=== PATIENT | female | born 1990 | race Caucasian/White ===

== ENCOUNTER → 2017-08-11 20:31 | Outpatient (CLI) | payer OTHER, SELFPAY ==
[2017-08-16 13:59] LABS: HPV Reflexed? NOT INDICATED
== END ==
PROVIDERS: Visit Provider Obstetrics & Gynecology
DX: Z12.4 Encounter for screening for malignant neoplasm of cervix (principal)
CPT/HCPCS: 88175; G0145

== ENCOUNTER → 2018-08-04 14:34 | Outpatient (CLI) | payer OTHER, SELFPAY ==
[2018-08-04 17:55] LABS: Chlamydia Trachomatis by PCR Negative (Negative); Neisserai gonorrhoeae by PCR Negative (Negative); Probe Check PASS; Sample Adequacy Control PASS; Specimen Processing Control PASS
== END ==
PROVIDERS: Visit Provider Obstetrics & Gynecology
DX: Z11.3 Encounter for screening for infections with a predominantly sexual mode of transmission (principal)
CPT/HCPCS: 87491; 87591

== ENCOUNTER → 2019-04-12 11:16 | Outpatient (CLI) | payer OTHER, SELFPAY ==
--- NOTE | 2019-04-12 11:19 | RAD_ITS ---
STUDY: X-RAY - LEFT KNEE REASON FOR EXAM: Female, 29 years old. Pain. TECHNIQUE: 4 view(s) of the knee. COMPARISON: None. FINDINGS: Normal visualized distal femur. Normal visualized proximal tibia and fibula. Normal proximal tibiofibular articulation. Normal medial femorotibial compartment. Normal lateral femorotibial compartment. Normal patellofemoral articulation. The soft tissue structures are unremarkable. RAD/Knee 4 or More Views IMPRESSION: Normal x-ray examination of the knee. Electronically Signed: David Katz, at 15:47 EDT , Service support ,
== END ==
PROVIDERS: Family Provider Internal Medicine; PCP Internal Medicine; Referring Provider Internal Medicine; Visit Provider Internal Medicine
DX: M25.562 Pain in left knee (principal)
CPT/HCPCS: 73564

== ENCOUNTER → 2019-12-06 | Outpatient (CLI) | payer OTHER, SELFPAY ==
[2019-12-12 15:57] LABS: HPV Reflexed? NOT INDICATED
== END | disposition home or self-care (01) ==
LOC: LABSPEC 13:55
PROVIDERS: PCP Internal Medicine; Visit Provider Obstetrics & Gynecology
DX: Z12.4 Encounter for screening for malignant neoplasm of cervix (principal)
CPT/HCPCS: 88175; G0145

== ENCOUNTER 2020-06-18 09:24 | Day surgery (SDC) | payer OTHER, SELFPAY ==
[2020-06-05 09:25] VITALS: BMI 26.6
[2020-06-18] VITALS (7 sets, daily range): BP systolic 84–115; BP diastolic 43–64; PULSE 53–99; RESP 16–18; TEMP 36.2–36.9; O2SAT 93–100; BMI 28.5
--- NOTE | 2020-06-18 06:00 | HP_ITS ---
Intake Vital Signs 06/05/20 Height 5 ft 1 in 06/05/20 Weight: 141 lb 06/05/20 BMI 26.6 06/05/20 BP 117/77 06/05/20 Blood Pressure Location Rt brachial 06/05/20 Position Sitting 06/05/20 Respiration 16 Intake Visit Reasons: Ventral Hernia Chief Complaint: ventral hernia Behavioral Health Care Manager Required: No Is patient in pain?: No Allergies Penicillins Allergy (Mild, Verified 06/05/20 09:26) Rash shellfish derived Allergy (Mild, Verified 06/05/20 09:26) Itching Medications NK 06/05/20 [History Confirmed 06/05/20] PFSH Surgical History S/P section (Acute) s/p left elbow surgery (Acute) s/p right elbow surgery (Acute) Family History Mother Thyroid disorder Hypertension Social History (Updated 06/05/20 @ 09:[address] Bailee Morrissey MD) Smoking Status: Current every day smoker alcohol intake: current HPI HPI HPI: ARIELLE SIDDIQUI, is a 30 F who presents to the office today for HPI HPI Surgical H&P: Yes HPI: ARIELLE SIDDIQUI, is a 30 F who presents to the office today for Possible ventral hernia. Patient states she is noticed a bump for the past few years . Patient states that time she may be a little bit bigger than usual and does not necessarily notice this when doing abdominal crunch. Patient seems notes it more when she is laying on her stomach doing exercises it can be uncomfortable patient rates it at 3/10. Currently patient denies any pain or discomfort at the site. Patient did lose 40 pounds intentionally in the last couple years. Exam Const General: cooperative, comfortable, no acute distress, well developed Resp Effort & Inspection: normal respiratory effort Cardio Rate: regular rate GI Inspection: non-distended Palpation: soft, no guarding, tender (Minimally in the midline above the bellybutton about 2 to 3 cm) Other: Unable to discretely feel the hernia with physical exam, bedside ultrasound was used and did notice a small little defect in the fascia about 3 cm above the umbilicus which measured about 3 mm on ultrasound.There did appear to be some preperitoneal fat in the hernia, no signs of strangulation Assessment & Plan Problems 1. Ventral hernia without obstruction or gangrene K43.9 Plan Discussed with patient due to the small size of the hernia would recommend just a suture closure and would likely not place any mesh. Plan to do Ventral hernia repair with possible mesh. Reviewed the procedure with the patient including the risks, including but not limited to infection, bleeding, injury to the small bowel, and recurrence. All questions were answered. Also, discussed risk of strangulated bowel, which currently is quite low as she has a very small defect but already has preperitoneal fat in it. Bailee Morrissey M.D. Pager: [phone] [facility] [address] [place] [address], [address] [place] [address] Office: [phone] Plan Detail Follow Up We will schedule hernia repair Coding Level of Care Code Off vis,new,level 3 Diagnoses Ventral hernia without obstruction or gangrene K43.9 COVID (Procedure Consent) Procedure Criteria Procedure Criteria: Yes Elective The surgeon/proceduralist and patient have discussed in detail the risk of exposure to and/or potential harm posed by the COVID-19 virus with having a surgery/procedure at this time versus the risk of? delaying the surgery/procedure. It is not possible to know either the risk of delaying the surgery or procedure or chance of getting an infection with perfect accuracy, but a joint decision was made between the patient and the surgeon/proceduralist ?to proceed at this time with the scheduled surgery/procedure as indicated on the consent form. I have re-examined the patient. There are no clinical changes since date of exam.
[2020-06-18 10:07] LABS: Internal QC Validated? YES +Cl - CLEAR BKGD; Pregnancy, Urine Negative Negative
--- NOTE | 2020-06-18 12:45 | OP.PCM_ITS ---
Report of Operation Date of Procedure: 06/18/20 Pre-Operative Diagnosis: Ventral hernia Post-Operative Diagnosis: Same Surgery/Procedure Performed:: Ventral hernia repair seal delivery vehicle team technician: Evelia Varghese Type of Anesthesia:: General/Supplemental Anesthesiologist: Yanick Robins Special Medications: Clindamycin 900 mg IV x1 Specimen's removed: None Estimated Blood Loss (mL): <10 cc Fluids Replaced: 1400 Description of Procedure: Patient was brought into the room placed supine on the operating table. Correct patient, procedure, site, positioning, special, was verified prior to procedure. General anesthesia was induced. The abdomen was prepped draped in usual st erile fashion. A supraumbilical midline incision was made with a 15 blade scalpel at the location of the hernia per bedside ultrasound. This was deepened with electrocautery. The fascia was cleared in this area to locate the hernia. Fascia around the hernia defect was cleared and the hernia defect measured 3 mm x 3 mm. 2-0 Ethibond suture was placed to close the fascia in a [id number]. No other fascial defects were noted in this area. The wound was irrigated with saline. Hemostasis was assured. The incision was closed with 3-0 Vicryl subdermal interrupted sutures and the skin was closed with interrupted 4-0 Monocryl sutures. Steri-Strips and Tegaderm and OpSite were placed over the incision. Patient was extubated. Patient tolerated procedure well and was taken to the postanesthesia care unit in stable condition. - Complications none
[2020-06-18] MEDS: Bupivacaine Mpf 0.5% 30 ML VIAL (12:47)
--- NOTE | 2020-06-18 12:48 | PCM.DC.GS ---
Discharge Diet: Light diet - advance as tolerated Discharge Activity: May not drive while taking narcotic pain medications. May shower in (days): 1 Lifting Restrictions: No lifting greater than 20 pounds x 2 weeks no strenuous exercise for 4 wks Call your doctor if your incision/area has: Continuous Slow Oozing, Sudden Increased Bleeding, Increased Pain/ Swelling, Increased Redness, Foul Smelling Discharge, Swelling at the incision site Call your doctor if you observe: Fever of 101 or Higher Additional Dressing/Incision Instructions:: Keep pressure dressing on for 2 days and okay to remove, replaced with a pressure type dressing for another 2 to 3 days change daily. Allergies/Adverse Reactions: Allergies Penicillins Allergy (Mild, Verified 06/18/20 09:59) Rash shellfish derived Allergy (Mild, Verified 06/18/20 09:59) Itching Medications to take at Discharge Oxycodone HCl/Acetaminophen [Percocet 5/325] 1 - 2 tablet PO Q6H PRN PRN 4 Days #15 tablet 06/18/20 The following prescriptions were given: Oxycodone HCl/Acetaminophen [Percocet 5/325] 1 - 2 tablet PO Q6H PRN PRN 4 Days #15 tablet PRN Reason: Pain Transmission Status: Sent to [facility] Primary Care Physician: Anitra Mcbride DO [Primary Care Provider] - Test Results: Test results from this visit will be discussed in further detail at your follow-up appointment, if applicable. Please Follow Up With: Bailee Morrissey MD - After 5 PM and on the weekends call [phone] with any concerns When: Call the office for a follow-up appointment in 2 weeks. Proposed Discharge Date: 06/18/20
== END 2020-06-18 14:40 | disposition home or self-care (01) ==
LOC: SDC 09:24 → AC 09:26
PROVIDERS: Anesthesiology; PCP Internal Medicine; Referring Provider Surgery; Visit Provider Surgery
PROC: (CPT 49560; principal; 2020-06-18 10:40)
DX: K43.9 Ventral hernia without obstruction or gangrene (principal); Z20.828 Contact with and (suspected) exposure to other viral communicable diseases; F17.200 Nicotine dependence, unspecified, uncomplicated; Z88.0 Allergy status to penicillin
CPT/HCPCS: 49560; 81025; 87426; C9803; J7120; J2405

== ENCOUNTER 2020-09-25 08:00 | Outpatient (RCR) | payer OTHER, SELFPAY | END 2020-11-26 23:59 | LOC: IMMUN 08:00 | PROVIDERS: PCP Internal Medicine; Visit Provider Family Medicine | DX: Z23 Encounter for immunization (principal) | CPT/HCPCS: 0002A; 91300 ==

== ENCOUNTER → 2022-02-20 | Outpatient (CLI) | payer OTHER, SELFPAY ==
--- NOTE | 2022-02-20 16:58 | MRI_ITS ---
STUDY: MR Knee W/O Contrast 02/20/2022 7:53 PM REASON FOR EXAM: Female, 31 years old.Technologist Notes ELFT knee pain s/p patellar dislocation, painful ROM Pain TECHNIQUE: Standardized fat and water weighted pulse sequences were obtained in all 3 orthogonal planes. COMPARISON: None. FINDINGS: Normal medial meniscus. Normal hyaline cartilage of the medial femorotibial compartment. Normal medial femoral condyle and tibial plateau. Normal medial collateral ligamentous complex (MCL). Normal distal semimembranosus, gracilis and semitendinosus tendons. Normal lateral meniscus. Normal hyaline cartilage of the lateral femorotibial compartment. Normal lateral tibial plateau. Normal proximal tibiofibular articulation. Normal lateral collateral (fibular) ligament. Normal popliteus tendon. Normal biceps femoris tendon. Normal anterior cruciate ligament (ACL). Normal posterior cruciate ligament (PCL). Normal congruent patellofemoral articulation. Normal hyaline cartilage of the patellofemoral compartment. Normal medial and lateral patellar retinaculum. Bone bruise of the patella. Bony edema and bruise of the lateral femoral condyle. Normal quadriceps tendon. Normal patellar tendon. Normal Hoffa''s fat pad. There is a small volume joint effusion. The soft tissues are unremarkable. The otherwise visualized osseous structures are unremarkable. MRI/Lower Ext Joint Only (Routine) IMPRESSION: Bone bruise of the patella. Bony edema and bruise of the lateral femoral condyle. Suprapatellar effusion. Electronically Signed: Dean Dorsey MD at 19:56 EDT ,
== END | disposition home or self-care (01) ==
PROVIDERS: PCP Internal Medicine
DX: S83.015A Lateral dislocation of left patella, initial encounter (principal)
CPT/HCPCS: 73721

== ENCOUNTER → 2023-09-02 | Outpatient (CLI) | payer OTHER, SELFPAY ==
[2023-09-06 21:07] LABS: Chlamydia By Nucleic Acid AMP Negative (Negative); Gonococcus By Nucleic Acid AMP Negative (Negative)
[2023-09-08 13:08] LABS: HPV APTIMA, High Risk Negative (Negative)
== END | disposition home or self-care (01) ==
LOC: LABSPEC 15:26
PROVIDERS: PCP Internal Medicine; Referring Provider Advanced Practice Midwife; Visit Provider Advanced Practice Midwife
DX: Z34.90 Encounter for supervision of normal pregnancy, unspecified, unspecified trimester (principal); Z3A.00 Weeks of gestation of pregnancy not specified
CPT/HCPCS: 87086; 87491; 87591; 87624; 88175; G0145

== ENCOUNTER 2023-09-25 19:43 | Emergency (ER) | payer OTHER, SELFPAY ==
[2023-09-25 19:44] VITALS: BP 125/73; PULSE 81; RESP 18; TEMP 36.6; O2SAT 99; BMI 32.1
--- NOTE | 2023-09-25 20:01 | US_ITS ---
STUDY: FIRST TRIMESTER OBSTETRICAL ULTRASOUND REASON FOR EXAM: Female, 33 years old. bleeding TECHNIQUE: Transvaginal US was obtained to better visualized the ovaries. TECHNICAL QUALITY: Adequate. PRIOR ULTRASOUND: None. FINDINGS: There is visualization of a single gestational sac in a normal intrauterine position. The mean sac diameter (MSD) measures 63 mm, indicating an estimated gestational age (EGA) of 12 weeks, 4 days. The gestational sac shape is within normal limits. There is no demonstrated yolk sac. There is visualization of the placenta. Posterior placenta. There is visualization of a live embryo. The crown-rump length (CRL) measures 60 mm, indicating an estimated gestational age (EGA) of 12 weeks, 3 days. There is demonstrated cardiac activity with a heart rate of 160 bpm. The estimated gestation age (EGA) by LMP is 12 weeks, 4 days. The estimated date of delivery (ENEDINA) by LMP is 10.15.24. The estimated gestation age (EGA) by US is 12 weeks, 4 days. The estimated date of delivery (ENEDINA) by US is 10.15.24. The uterus measures 12.3 cm. There is no demonstrated uterine fibroid. The cervix is closed. The right ovary measures 2.9 cm. There is no right ovarian cyst. There is no visualized right adnexal mass or complex lesion. The left ovary measures 3.3 cm. There is no left ovarian cyst. There is no visualized left adnexal mass or complex lesion. There is no fluid in the cul de sac. US/Transvaginal w/Preg US IMPRESSION: There is a single live intrauterine with a heart rate of 160 bpm. Electronically Signed: Dean Dorsey MD at 21:23 EDT ,
--- NOTE | 2023-09-25 20:02 | ED.VIS.FEGU ---
HPI <CHRISTINE Thacker - Last Filed: 09/25/23 21:27> HPI - Female History of Present Illness Chief Complaint: Vag Bld, Preg Narrative Narrative: 33-year-old female G2, P1 about 12 weeks states 30 minutes ago she felt wetness in her underwear and there was bright red blood. There is bright red blood when she wiped after urinating. She has no abdominal pain or cramping. She called her RECEPTION CENTRE MANAGER who recommended she come in. So far first trimester has been uncomplicated and she had an ultrasound around 9 weeks confirming intrauterine . She has no dysuria or hematuria. PFSH <CHRISTINE Thacker - Last Filed: 09/25/23 21:27> PFS Medical History Knee pain Use of cannabinoid edibles Home Medications multivit-min no.71-iron fum 28 mg-folate no.1 1 mg-dha 300 mg capsule (PNV-[place]) cap PO 08/27/23 [History Last Taken Unknown] Allergy/AdvReac Type Severity Reaction Status Date / Time Penicillins Allergy Mild Rash Verified 09/25/23 19:47 shellfish derived Allergy Mild Itching Verified 09/25/23 19:47 Family History Mother Thyroid disorder Hypertension Grandmother Diabetes Paternal Grandmother Diabetes maternal Other Cancer Surgical History S/P section s/p left elbow surgery s/p right elbow surgery S/P ventral herniorrhaphy [place] teeth extracted Social History adopted: No household members: spouse and children number of children: 1 current occupational status: employed 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 current occupational exposures/hazards: No pets and animals: Yes (Avoid litterbox) pets and animals: cat(s) and dog(s) history of recent travel: Yes ([place] April) out of state: Yes out of country: No sexually active: Yes Smoking Status: Former smoker quit date: 08/20/11 alcohol intake: current details: Not while well-balanced diet: daily or most days caffeine: Yes Type: coffee Number of servings: 1 eating out: rarely or never during the past year weight has: remained stable what type of physical activity do you participate in: weight training frequency: 5-6 times per week duration: 15-30 minutes/day idris/hoahaoism: None seatbelt use: always do you feel safe at home: Yes additional social history: Naveen COSBY <CHRISTINE Thacker - Last Filed: 09/25/23 21:27> ROS ED ROS Narrative Constitutional: Negative for fever, chills, malaise. GI: Negative for abdominal pain, nausea, vomiting. : Negative for dysuria, hematuria or frequency. EXAM <CHRISTINE Thacker - Last Filed: 09/25/23 21:27> Physical Exam Narrative Exam Narrative: CONST: Patient sitting in no acute distress. EYES: Normal inspection. NECK: Normal inspection. RESP: No respiratory distress, CTAB. CVS: Regular rate and rhythm, no murmur, no gallop. ABD: Soft and nontender, no guarding or rebound, nondistended. Pelvic: Normal external genitalia, dime sized blood clot in vaginal vault. Cervical os appears closed with no active bleeding. SKIN: Color normal, no rash, warm, dry, intact. EXTREMITIES: Normal appearance, no pedal edema. NEURO: Alert and answering questions appropriately. PSYCH: Normal affect. Const Vital Signs: 09/25/23 19:44 Temperature 97.9 F Temperature Source Temporal Pulse Rate 81 Respiratory Rate 18 Blood Pressure 125/73 H Blood Pressure Mean 90 Pulse Ox 99 Oxygen Delivery Method Room Air <Dr. Sav Guallpa DO - Last Filed: 09/25/23 21:04> Physical Exam Const Vital Signs: 09/25/23 19:44 Temperature 97.9 F Temperature Source Temporal Pulse Rate 81 Respiratory Rate 18 Blood Pressure 125/73 H Blood Pressure Mean 90 Pulse Ox 99 Oxygen Delivery Method Room Air MDM <CHRISTINE Thacker - Last Filed: 09/25/23 21:27> MDM MDM Narrative Medical decision making narrative: History gathered from: Patient and spouse Consults: RECEPTION CENTRE MANAGER Differential: Threatened versus complete , UTI Patient is about 12.5 weeks and presents with vaginal bleeding without abdominal pain. She appears well and nontoxic. Vital signs stable. Abdomen soft and nontender. Pelvic exam showed a small dime size clot but no active bleeding and closed cervical os. Hemoglobin is normal at 12.8. hCG quant is 29,637. Urine is contaminated with 2+ bacteria and was sent for culture. Ultrasound shows single live IUP with heart rate of 160 bpm. I discussed these findings with the patient and her RECEPTION CENTRE MANAGER Dr. Jordi Hanson and she will follow-up in the office. She was discharged in stable condition. Patient seen and evaluated with ANU. I personally interviewed and examined the patient. I was involved in all aspects of patient's orders, interpretation of results, and treatment. Patient presents to the emergency department vaginal bleeding started at half an hour ago. Patient states that she just felt wet and went to the bathroom and noted that she was bleeding. She is and 12 weeks and 4 days . Patient had an ultrasound at about 9 weeks that showed an intrauterine at that time. She denies any abdominal pain. Patient denies urinary symptoms. Patient's RECEPTION CENTRE MANAGER called to let me know patient would be coming to the emergency department to be evaluated. HEENT-PERRLA, EOMI Cardiovascular-regular rate and rhythm without murmur Lungs-clear to auscultation without rales or wheezes Abdomen-nontender with normal active bowel sounds. No rebound, rigidity, or peroneal signs. Extremities-intact x 4 without edema Patient presents with vaginal bleeding and about 12 weeks 4 days . Will obtain basic labs and order pelvic ultrasound to evaluate further. CBC with differential white count 9.7 hemoglobin 12.8 platelet count 208. Urinalysis unremarkable. Discussed case with patient's RECEPTION CENTRE MANAGER Dr. Eden who sent the patient in. Will await official report from radiology but feel patient can be safely discharged to home. Lab Data Attestation: I reviewed the patient's lab results. Labs: Laboratory Results - last 24 hr 09/25/23 20:05 WBC 9.7 RBC 4.13 L Hgb 12.8 Hct 36.2 L MCV 87.7 MCH 31.0 MCHC 35.4 RDW Std Deviation 37.3 RDW Coeff of Radha 11.7 Plt Count 208 MPV 10.4 Immature Gran % (Auto) 0.600 Neut % (Auto) 72.2 H Lymph % (Auto) 20.0 [place] % (Auto) 5.7 Eos % (Auto) 1.2 Baso % (Auto) 0.3 Absolute Neuts (auto) 7.0 Absolute Lymphs (auto) 1.95 Nucleated RBC % 0 HCG, Quant 25493 H Urine Color Yellow Urine Clarity Sl. Cloudy Urine pH 7.0 Ur Specific [place] 1.020 Urine Protein 15 H Urine Glucose (UA) Normal Urine Ketones Negative Urine Occult Blood 250 H Urine Nitrite Negative Urine Bilirubin Negative Urine Urobilinogen 1 H Ur Leukocyte Esterase 100 H Urine RBC 10-25 SEEN Urine WBC 0-5 SEEN Ur Squamous Epith Cells 10-25 SEEN Urine Bacteria 2+ Urine Mucus 0 SEEN Radiography Diagnostic Testing: Clinical Impression(s) from Imaging Studies Obstetrics Ultrasound 09/25/23 20:01 IMPRESSION: There is a single live intrauterine with a heart rate of 160 bpm. Electronically Signed: Dean Dorsey MD at 21:23 EDT Reading Location ID and State: [facility] / [place] , Service support , <Dr. Sav Guallpa, DO - Last Filed: 09/25/23 21:04> [facility] Narrative Medical decision making narrative: Patient is about 12.5 weeks and presents with vaginal bleeding without abdominal pain. She appears well and nontoxic. Vital signs stable. Abdomen soft and nontender. Pelvic exam showed a small dime size clot but no active bleeding and closed cervical os. Hemoglobin is normal at 12.8. hCG quant is 29,637. Patient seen and evaluated with ANU. I personally interviewed and examined the patient. I was involved in all aspects of patient's orders, interpretation of results, and treatment. Patient presents to the emergency department vaginal bleeding started at half an hour ago. Patient states that she just felt wet and went to the bathroom and noted that she was bleeding. She is and 12 weeks and 4 days . Patient had an ultrasound at about 9 weeks that showed an intrauterine at that time. She denies any abdominal pain. Patient denies urinary symptoms. Patient's RECEPTION CENTRE MANAGER called to let me know patient would be coming to the emergency department to be evaluated. HEENT-PERRLA, EOMI Cardiovascular-regular rate and rhythm without murmur Lungs-clear to auscultation without rales or wheezes Abdomen-nontender with normal active bowel sounds. No rebound, rigidity, or peroneal signs. Extremities-intact x 4 without edema Patient presents with vaginal bleeding and about 12 weeks 4 days . Will obtain basic labs and order pelvic ultrasound to evaluate further. CBC with differential white count 9.7 hemoglobin 12.8 platelet count 208. Urinalysis unremarkable. Discussed case with patient's RECEPTION CENTRE MANAGER Dr. Eden who sent the patient in. Will await official report from radiology but feel patient can be safely discharged to home. Lab Data Attestation: I reviewed the patient's lab results. Labs: Laboratory Results - last 24 hr 09/25/23 20:05 WBC 9.7 RBC 4.13 L Hgb 12.8 Hct 36.2 L MCV 87.7 MCH 31.0 MCHC 35.4 RDW Std Deviation 37.3 RDW Coeff of Radha 11.7 Plt Count 208 MPV 10.4 Immature Gran % (Auto) 0.600 Neut % (Auto) 72.2 H Lymph % (Auto) 20.0 [place] % (Auto) 5.7 Eos % (Auto) 1.2 Baso % (Auto) 0.3 Absolute Neuts (auto) 7.0 Absolute Lymphs (auto) 1.95 Nucleated RBC % 0 HCG, Quant 18354 H Urine Color Yellow Urine Clarity Sl. Cloudy Urine pH 7.0 Ur Specific [place] 1.020 Urine Protein 15 H Urine Glucose (UA) Normal Urine Ketones Negative Urine Occult Blood 250 H Urine Nitrite Negative Urine Bilirubin Negative Urine Urobilinogen 1 H Ur Leukocyte Esterase 100 H Urine RBC 10-25 SEEN Urine WBC 0-5 SEEN Ur Squamous Epith Cells 10-25 SEEN Urine Bacteria 2+ Urine Mucus 0 SEEN Radiography Diagnostic Testing: Clinical Impression(s) from Imaging Studies Obstetrics Ultrasound 09/25/23 20:01 IMPRESSION: There is a single live intrauterine with a heart rate of 160 bpm. Electronically Signed: Dean Dorsey MD at 21:23 EDT Reading Location ID and State: [facility] / [place] , Service support , Discharge Plan Triage Chief Complaint: Vag Bld, Preg ED Midlevel Provider: Luna Cardoza ED Provider: Sav Guallpa Dx/Rx/DC Orders Clinical Impression: Threatened in first trimester Instructions: Miscarriage Threatened Prescriptions: No Action PNV-[place] 28-1-300 mg capsule PO Primary Care Provider: Anitra Mcbride Referrals: Anitra Mcbride DO [Primary Care Provider] - Dorita Eden MD [Med Staff - Active Staff] - Keep Nieves appointment Activity Restrictions/Additional Instructions: Your ultrasound showed a normal-appearing with a heart rate of 160. Whenever you have bleeding during this is called a threatened miscarriage. I recommend pelvic rest which means no tampons or sex or anything inserted into the vagina. Please follow-up with your RECEPTION CENTRE MANAGER. Disposition Disposition: Home, Self Care
[2023-09-25 20:15] LABS: Mucous, Urine 0 SEEN /hpf (<or=2+)
[2023-09-25 20:16] LABS: Absolute Lymphocyte Count 1.95 X10^3/uL (0.83-4.51); Basophil# 0.03 X10^3/uL; Basophil% 0.3 % (0-1); Eosinophil# 0.12 X10^3/uL; Eosinophils% 1.2 % (0-5); Hematocrit 36.2 % (37-47); Hemoglobin 12.8 g/dL (12.0-15.0); Lymphocyte # 1.95 X10^3/ul (0.83-4.51); Mean Corp Hgb Conc 35.4 g/dL (32-36); Mean Corpuscular Volume 87.7 fL (81-99); Mean Platelet Vol. 10.4 fl (6.2-12.0); Monocyte# 0.55 X10^3/uL; Monocyte% 5.7 % (0-10); NRBC Flagged by Analyzer 0 % (0-5); Neutrophil # 7.02 X10^3/uL (2.7-7.7); Neutrophil % 72.2 % (47-70); Platelet Count 208 K/mm3 (150-450); RBC Distribution Width CV 11.7 % (11.6-14.6); RBC Distribution Width SD 37.3 fl (35.1-43.9); Red Blood Count 4.13 M/mm3 (4.2-5.4); White Blood Count 9.7 K/mm3 (4.4-11.0)
[2023-09-25 20:17] LABS: Color, Urine Yellow (Yellow); Glucose, Dipstick Normal (Normal); Ketone-Dipstick Negative (Negative); Leukocyte Esterase-Dipstick 100 /ul (Negative); Nitrite-Dipstick Negative (Negative); Occult Blood-Urine 250 /ul (Negative); Protein-Dipstick 15 mg/dl (Negative); Urine Bilirubin Dipstick Negative (Negative); Urine Clarity Sl. Cloudy (Clear); Urine Urobilinogen 1 mg/dl (Normal)
[2023-09-25 20:23] LABS: Red Blood Cells-Urine 10-25 SEEN /hpf (0-5); Squamous Epithelial Cells - UA 10-25 SEEN /hpf (5-10); White Blood Cells 0-5 SEEN /hpf (0-5)
[2023-09-25 20:24] LABS: Bacteria 2+ /hpf (None Seen)
[2023-09-25 20:50] LABS: hCG Titer Quant., Serum 29637 mIU/mL (1-3)
[2023-09-25 21:30] VITALS: BP 132/69; PULSE 68; RESP 16; TEMP 36.4; O2SAT 100
== END 2023-09-25 21:31 | disposition home or self-care (01) ==
PROVIDERS: Physician Assistant; Emergency Provider Emergency Medicine; PCP Internal Medicine; Visit Provider Emergency Medicine
DX: O20.0 Threatened abortion (principal); Z3A.12 12 weeks gestation of pregnancy; Z87.891 Personal history of nicotine dependence
CPT/HCPCS: 76817; 81001; 84702; 85025; 87086; 99283

== ENCOUNTER → 2023-10-04 | Outpatient (CLI) | payer OTHER, SELFPAY ==
[2023-10-04 12:54] LABS: Absolute Lymphocyte Count 1.31 X10^3/uL (0.83-4.51); Absolute Neutrophil Count 5.3 X10^3/uL (2.0-7.7); Basophil# 0.02 X10^3/uL; Basophil% 0.3 % (0-1); Eosinophil# 0.08 X10^3/uL; Eosinophils% 1.1 % (0-5); Hematocrit 35.7 % (37-47); Hemoglobin 12.6 g/dL (12.0-15.0); Lymphocyte # 1.31 X10^3/ul (0.83-4.51); Lymphocyte % 18.7 % (19-41); Mean Corp Hgb Conc 35.3 g/dL (32-36); Mean Corpuscular Hgb 31.3 pg (27.0-32.0); Mean Corpuscular Volume 88.8 fL (81-99); Mean Platelet Vol. 10.8 fl (6.2-12.0); Monocyte% 4.3 % (0-10); NRBC Flagged by Analyzer 0 % (0-5); Neutrophil # 5.25 X10^3/uL (2.7-7.7); Neutrophil % 75.2 % (47-70); Platelet Count 195 K/mm3 (150-450); RBC Distribution Width CV 11.7 % (11.6-14.6); RBC Distribution Width SD 37.6 fl (35.1-43.9); Red Blood Count 4.02 M/mm3 (4.2-5.4)
[2023-10-04 13:45] LABS: Hemoglobin A1c 4.5 % (3.8-5.6)
[2023-10-04 14:04] LABS: HIV - WCH Non-Reactive (Nonreactive); Hepatitis B Surface Antigen Non-Reactive (Nonreactive); Hepatitis C Antibody Non-Reactive (Nonreactive); Rubella IgG Reactive (Nonreactive); Syphilis Antibodies Non-reactive
== END | disposition home or self-care (01) ==
LOC: LAB 12:09
PROVIDERS: PCP Internal Medicine; Visit Provider Advanced Practice Midwife
DX: Z34.01 Encounter for supervision of normal first pregnancy, first trimester (principal)
CPT/HCPCS: 83036; 85025; 86703; 86762; 86780; 86803; 86850; 86900; 86901; 87340

== ENCOUNTER → 2024-01-03 | Outpatient (CLI) | payer OTHER, SELFPAY ==
[2024-01-03 12:56] LABS: Absolute Lymphocyte Count 1.05 X10^3/uL (0.83-4.51); Absolute Neutrophil Count 6.3 X10^3/uL (2.0-7.7); Basophil# 0.02 X10^3/uL; Basophil% 0.3 % (0-1); Eosinophil# 0.07 X10^3/uL; Eosinophils% 0.9 % (0-5); Hematocrit 33.2 % (37-47); Hemoglobin 11.4 g/dL (12.0-15.0); Lymphocyte # 1.05 X10^3/ul (0.83-4.51); Lymphocyte % 13.6 % (19-41); Mean Corp Hgb Conc 34.3 g/dL (32-36); Mean Corpuscular Hgb 31.8 pg (27.0-32.0); Mean Corpuscular Volume 92.7 fL (81-99); Mean Platelet Vol. 11.1 fl (6.2-12.0); Monocyte# 0.26 X10^3/uL; Monocyte% 3.4 % (0-10); NRBC Flagged by Analyzer 0 % (0-5); Neutrophil # 6.26 X10^3/uL (2.7-7.7); Neutrophil % 80.9 % (47-70); Platelet Count 170 K/mm3 (150-450); RBC Distribution Width CV 12.1 % (11.6-14.6); RBC Distribution Width SD 40.6 fl (35.1-43.9); Red Blood Count 3.58 M/mm3 (4.2-5.4); White Blood Count 7.7 K/mm3 (4.4-11.0)
[2024-01-03 13:29] LABS: Glucose Challenge Gest 1H 50g 152 mg/dL (70-140)
[2024-01-03 13:52] LABS: HIV - WCH Non-Reactive (Nonreactive); Syphilis Antibodies Non-reactive
== END | disposition home or self-care (01) ==
LOC: LAB 12:23
PROVIDERS: PCP Internal Medicine; Referring Provider Nurse Practitioner Women's Health; Visit Provider Nurse Practitioner Women's Health
DX: Z34.92 Encounter for supervision of normal pregnancy, unspecified, second trimester (principal); Z3A.21 21 weeks gestation of pregnancy
CPT/HCPCS: 36415; 82950; 85025; 86703; 86780

== ENCOUNTER → 2024-01-07 | Outpatient (CLI) | payer OTHER, SELFPAY ==
[2024-01-07 10:26] LABS: Bedside Glucose 76 mg/dL (74-106)
[2024-01-07 10:59] LABS: Glucose GTT-Gestation. Fasting 80 mg/dL (<105)
[2024-01-07 11:34] LABS: Glucose GTT-Gestational 1 Hr 156 mg/dL (<190)
[2024-01-07 12:41] LABS: Glucose GTT-Gestational 2 Hr 138 mg/dL (<165)
[2024-01-07 13:52] LABS: Glucose GTT-Gestational 3 Hr 117 L (<145)
== END | disposition home or self-care (01) ==
LOC: LAB 09:46
PROVIDERS: PCP Internal Medicine; Referring Provider Nurse Practitioner Women's Health; Visit Provider Nurse Practitioner Women's Health
DX: O99.810 Abnormal glucose complicating pregnancy (principal); Z3A.00 Weeks of gestation of pregnancy not specified
CPT/HCPCS: 36415; 82951; 82952; 82962

== ENCOUNTER → 2024-03-13 | Outpatient (CLI) | payer OTHER, SELFPAY | END | disposition home or self-care (01) | LOC: LABSPEC 16:14 | PROVIDERS: PCP Internal Medicine; Referring Provider Obstetrics & Gynecology; Visit Provider Obstetrics & Gynecology | DX: O09.93 Supervision of high risk pregnancy, unspecified, third trimester (principal) | CPT/HCPCS: 87081 ==

== ENCOUNTER 2024-04-04 05:19 | Inpatient (IN) | payer OTHER, SELFPAY ==
[2024-04-04] VITALS (16 sets, daily range): BP systolic 92–133; BP diastolic 51–93; PULSE 64–94; RESP 15–18; TEMP 36.2–37.2; O2SAT 96–100; BMI 37.8
[2024-04-04 05:44] LABS: Absolute Lymphocyte Count 1.85 X10^3/uL (0.83-4.51); Absolute Neutrophil Count 6.7 X10^3/uL (2.0-7.7); Basophil# 0.03 X10^3/uL; Basophil% 0.3 % (0-1); Eosinophil# 0.12 X10^3/uL; Eosinophils% 1.3 % (0-5); Hematocrit 30.9 % (37-47); Hemoglobin 10.3 g/dL (12.0-15.0); Lymphocyte # 1.85 X10^3/ul (0.83-4.51); Lymphocyte % 20.2 % (19-41); Mean Corp Hgb Conc 33.3 g/dL (32-36); Mean Platelet Vol. 11.9 fl (6.2-12.0); Monocyte# 0.39 X10^3/uL; Monocyte% 4.3 % (0-10); NRBC Flagged by Analyzer 0 % (0-5); Neutrophil % 73.1 % (47-70); Platelet Count 178 K/mm3 (150-450); RBC Distribution Width CV 12.5 % (11.6-14.6); RBC Distribution Width SD 39.6 fl (35.1-43.9); Red Blood Count 3.55 M/mm3 (4.2-5.4); White Blood Count 9.2 K/mm3 (4.4-11.0)
[2024-04-04] MEDS: Acetaminophen 500 MG Tablet 1000 MG PO ×3 (05:51→18:16)
[2024-04-04] MEDS: Lactated Ringers 1,000 ML 999 ML IV (05:52)
--- NOTE | 2024-04-04 07:12 | HP.PCM.OB_ITS ---
HPI - General General Date of Admission: 04/04/24 HPI Narrative ARIELLE MUNGUIA, is a 33 @ 40 weeks 0 days who presents to L&D for a repeat section Maternal Data Information ENEDINA Calculator Estimated Delivery Date Method Current WG Current Estimate 04/04/24 Ultrasound #1 40w 0d Other Estimates 04/09/24 LMP (Certain) 39w 2d PFSH PFSH Medical History (Updated 04/04/24 @ 05:51 by Janelle Flood) depression Headache Use of cannabinoid edibles Avulsion fracture Strain of left knee Knee pain Home Medications ?Medication ?Instructions ?Recorded ?Last Taken ?Type multivit-min no.71-iron fum 28 1 cap PO DAILY supplement 08/27/23 04/03/24 16:00 History mg-folate no.1 1 mg-dha 300 mg capsule (PNV-[place]) Allergy/AdvReac Type Severity Reaction Status Date / Time Penicillins Allergy Mild Rash Verified 04/04/24 05:37 shellfish derived Allergy Mild Itching Verified 04/04/24 05:37 Family History Mother Thyroid disorder Hypertension Grandmother Diabetes Paternal Grandmother Diabetes maternal Other Cancer Surgical History [place] teeth extracted S/P ventral herniorrhaphy s/p right elbow surgery s/p left elbow surgery S/P section Social History adopted: No household members: spouse and children number of children: 1 current occupational status: employed 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 current occupational exposures/hazards: No pets and animals: Yes (Avoid litterbox) pets and animals: cat(s) and dog(s) history of recent travel: Yes (April) out of state: Yes out of country: No sexually active: Yes Smoking Status: Never smoker alcohol intake: current details: Not while well-balanced diet: daily or most days caffeine: Yes Type: coffee Number of servings: 1 eating out: rarely or never during the past year weight has: remained stable what type of physical activity do you participate in: weight training frequency: 5-6 times per week duration: 15-30 minutes/day idris/bahai: None seatbelt use: always do you feel safe at home: Yes additional social history: Naveen History 2 Elective abortions Hx Para 1 Spontaneous abortions Hx # Term Pregnancies Ectopic pregnancies Hx # Pregnancies Multiple births # of living children 1 Past Pregnancies Del. Date Name GA/Weeks Outcome Route Bth Weight Infant Gen Labor Lgth Anesthesia Del Locatn Provider FOB 12/05/11 [place] 40 live - full term 9#8oz Male 15 HR epidural [facility] Dr. Osito Gee Delivery Date: 12/05/11 Last Updated by: Anca Estrada failure progress past 8 cm, c section Visit Details Expected Delivery Route/Plan TOLAC patient counseled regarding risks/benefits of trial of labor versus repeat . ACOG/uptodate education given to patient. 43 % likelihood of success per calculator TOLAC consent form signed: [] Labor Preferences- CB/BF classes: enc labor support person: Naveen labor intervention preferences: open to intervention pain management options preferred: planning epidural cut cord/dad catch: yes : Yes PP control planned: [] discussed possible routes of delivery and associated risks: [] special requests: [] Plans Covid status: [] Flu vaccine: [] Tdap vaccine: given Rhogam: NA LARC form signed: yes movement and labor precautions reviewed. Problem list reviewed and updated with the most current plan of care details and appropriate orders placed. Relevant counseling for the gestational age provided. Continue routine care and follow up unless otherwise noted in visit notes/problem list details OB Flowsheet Initial Weight: Not Recorded Date -?-?-?-?-?-?-?-?-?-?-?-?- EGA Weight BP Urine Prot -?-?-?-?-?-?-?-?-?-?-?-?- Glucose FHR FuHt Pres Dilation -?-?-?-?-?-?-?-?-?-?-?-?- Effaced St Visit Note 09/02/23 -?-?-?-?-?-?-?-?-?--?-?-?- 9w 2d 167 lb 8 oz -?-?-?-?-?-?-?-?-?-?-?-?- 185 -?-?-?-?-?-?-?-?-?-?-?-?- kw- not cons wit h dates. ENEDINA changed. Previous C/S with Osito. Considering but undecided. wants NIPT. 09/29/23 -?-?-?-?-?-?-?-?-?-?-?-?- 13w 1d 169 lb 6 oz 103/69 Nega tive -?-?-?-?-?-?-?-?-?-?-?-?- Negative 155 -?-?-?-?-?-?-?-?-?-?-?-?- JV- pt was in ER over the weekend for bleeding. is anxious today. bedside scan looks normal. no sign of SAADIA. cx closed, no sign of infection or ectropion. pelvic rest discussed until anatomy scan 10/25/23 -?-?-?-?-?-?-?-?-?-?-?-?- 16w 6d 172 lb 2 oz 102/64 Nega tive -?-?-?-?-?-?-?-?-?-?-?-?- Negative 151 -?-?-?-?-?-?-?-?-?-?-?-?- JV- no complaint s today. declines AFP. anatomy us ordered. scheduled for 11/1011/23/23 -?-?-?-?-?-?-?-?-?-?-?-?- 21w 0d 176 lb 4 oz 104/66 Nega tive -?-?-?-?-?-?-?-?-?-?-?-?- Negative 154 -?-?-?-?-?-?-?-?-?-?-?-?- MH-No VB, LOF. G ood FM. Denies concerns 12/20/23 -?-?-?-?-?-?-?-?-?-?-?-?- 24w 6d 184 lb 95/62 Negative -?-?-?-?-?-?-?-?-?-?-?-?- Negative 145 26 -?-?-?-?-?-?-?-?-?-?-?-?- SM- no vb lof go od fm no regular ctx discussed TOLAC 01/10/24 -?-?-?-?-?-?-?-?-?-?-?-?- 27w 6d 186 lb 2 oz 112/72 Nega tive -?-?-?-?-?-?-?-?-?-?-?-?- Negative 152 28 -?-?-?-?-?-?-?-?-?-?-?-?- MH-No Vb, LOF. G ood Fm. Nl 3rd trim labs. Wants RCS 04/04 if no spont labor. 01/24/24 -?-?-?-?-?-?-?-?-?-?-?-?- 29w 6d 189 lb 4 oz 125/74 Nega tive -?-?-?-?-?-?-?-?-?-?-?-?- Negative 150 29 -?-?-?-?-?-?-?-?-?-?-?-?- JV- growth scans are normal. no complaints today. wants to skip the next growth scan or 2 due to cost and do the next at 36 to 39 weeks. (being done for posterior uterine/vaginal varicosities) 02/11/24 -?-?-?-?-?-?-?-?-?-?--?-?- 32w 3d 193 lb 108/71 Negative -?-?-?-?-?-?-?-?-?-?-?-?- Negative 134 32 -?-?-?-?-?-?-?-?-?-?-?-?- LC- no vb/ctx/lo f. good fm. no concerns today. 02/22/24 -?-?-?-?-?-?-?-?-?-?-?-?- 34w 0d 194 lb 2 oz 122/76 Nega tive -?-?-?-?-?-?-?-?-?-?-?-?- Negative 153 34 -?-?--?-?-?-?-?-?-?-?-?-?- MH-No VB, LOF. G ood FM. Growth US is scheduled 03/06/24 -?-?-?-?-?-?-?-?-?-?-?-?- 35w 6d 194 lb 114/70 -?-?-?-?-?-?-?-?-?-?-?-?- 150 37 -?-?-?-?-?-?-?-?-?-?-?-?- SM- no vb lof go od fm no reguar ctx discussed tolac and consent signed 03/13/24 -?-?-?-?-?-?-?-?-?-?-?-?- 36w 6d 195 lb 4 oz 95/56 Nega tive -?-?-?-?-?-?-?-?-?-?-?-?- Negative 161 40 Cephalic 0 .5 -?-?-?-?-?-?-?-?-?-?-?-?- JV-pt has a clus ter of vulvar warts at the perineum and on the right vulva. GBS collected. labor precautions discussed. will attempt to remove some of the warts at delivery that may be in the way of an episiotomy healing but otherwise, plan for cryo after state. 03/20/24 -?-?-?-?-?-?-?-?-?-?-?-?- 37w 6d 198 lb 108/68 Negative -?-?-?-?-?-?-?-?-?-?-?-?- Negative 161 40 -?-?-?-?-?-?-?-?-?-?-?-?- MH-declines cerv ical check. No VB, LOF. Occa BH CTX. Good Fm. 03/27/24 -?-?-?-?-?-?-?-?-?-?-?-?- 38w 6d 200 lb 101/65 Negative -?-?-?-?-?-?-?-?-?-?-?-?- Negative 144 41 Cephalic 1 -?-?-?-?-?-?-?-?-?-?-?-?- 70 -3 JV- growth ac >99th%. planning rpt cs next week if no labor. rto for pre- op exam next wednesday. 04/03/24 -?-?-?-?-?-?-?-?-?-?-?-?- 39w 6d 199 lb 103/67 Negative -?-?-?-?-?-?-?-?-?-?-?-?- Negative 140 42 Cephalic -?-?-?-?-?-?-?-?-?-?-?-?- KW- no vb/lof/ct x. good fm. C/S instructions reviewed, planned for tomorrow. ROS Constitutional Constitutional: Denies change in weight, fatigue, fever(s), headache(s), poor appetite or weakness Eyes Eyes: Denies blurry vision, change in vision, seeing flashes or spots in vision ENT HEENT: Denies dizziness, headache(s), loss taste/smell or sore throat Cardiovascular Cardiovascular: Denies chest pain, dizziness, dyspnea, irregular heart rhythm, leg edema, palpitations, rapid heart rate or vomiting Respiratory/Chest Respiratory/Chest: Denies chest tightness, cough, dyspnea or breast pain Gastrointestinal Gastrointestinal: Denies abdominal pain, anorexia, constipation, cramping, diarrhea, hemorrhoids, vomiting or weight changes Genitourinary Genitourinary: Denies dysuria, flank pain, genital lesions, genital pain, urinary frequency or urinary urgency Musculoskeletal Musculoskeletal: Denies back pain, difficulty walking, joint pain, limited range of motion, muscle cramps or numbness Integumentary Integumentary: Denies lesions or unusual bruising Neurologic Neurologic: Denies abnormal movements, abnormal speech, dizziness, numbness, seizure-like activity or syncope Psychiatric Psychiatric: Denies anxiety, behavioral changes, change in appetite, change in libido, cognitive impairment, confusion, depression, difficulty concentrating, hallucinations or suicidal thoughts Endocrine Endocrinology: Denies excessive sweating, polydipsia or polyuria Hematologic/Lymphatic Hematologic/Lymphatic: Denies easy bleeding, easy bruising or lymphadenopathy Allergic/Immunologic Allergic/Immunologic: Denies itchy eyes, lip swelling, seasonal rhinorrhea, rhinitis, throat swelling, tongue swelling, eczemia, wheezing or asthma Vital Signs Vital Signs Vital Signs: 04/04/24 05:28 04/04/24 05:28 04/04/24 05:28 Temperature Temperature Source Pulse Rate 88 Respiratory Rate 16 Blood Pressure 113/68 Blood Pressure Mean BP Systolic 113 BP Diastolic 68 Blood Pressure Source Blood Pressure Position Blood Pressure Location Pulse Ox Oxygen Delivery Method 04/04/24 05:28 04/04/24 05:28 04/04/24 07:09 Temperature 97.7 F L 97.7 F L Temperature Source Temporal Temporal Pulse Rate 88 Respiratory Rate 16 Blood Pressure 133/68 H Blood Pressure Mean 89 BP Systolic BP Diastolic Blood Pressure Source Monitor Blood Pressure Position Semi-Fowlers Blood Pressure Location Right Arm Pulse Ox 98 Oxygen Delivery Method Room Air Weight Weight: 200 lb 2.876 oz Body Mass Index (BMI) 37.8 Physical Exam Const alert, oriented x3, no apparent distress and healthy appearing General Appearance: cooperative; Negative for anxious HEENT normocephalic Face and Sinus: normal facial exam Eyes EOMs intact bilaterally and no scleral icterus General Eye: normal appearance of both eyes Neck full ROM and supple Lymph Lymphatic: no lymphadenopathy noted Chest Chest: abnormal inspection of the chest Resp normal respiratory effort Effort and Inspection: able to speak in complete sentences Cardio regular rate GI soft to palpation and non-tender Inspection: gravid Palpation: soft; Negative for tender Back/Spine no CVA tenderness Extremity normal to inspection, full ROM and no clubbing, cyanosis or edema General Extremity: Negative for calf tenderness or edema Skin Lesions: no lesions Rashes: no rashes Psych mental status grossly normal Labs Labs Labs: Blood Type A POSITIVE Antibody Screen NEGATIVE Hct 30.9 % (37-47) L Hgb 10.3 g/dL (12.0-15.0) L Obstetrics Ultrasound Syphilis Total Ab Non-reactive Rubella IgG Antibody Reactive (Nonreactive) Hep Bs Antigen Non-Reactive (Nonreactive) Hepatitis C Antibody Non-Reactive (Nonreactive) Chlamydia DNA (MARIAM) Negative (Negative) N.gonorrhoeae DNA (MARIAM) Negative (Negative) HIV 1&2 Antibody Non-Reactive (Nonreactive) Glucose 1 Hr 50 gm 152 mg/dL (70-140) H Gest Glucose Tolerance MG/DL Assessment & Plan (1) Genital warts complicating : QUALIFIERS: Trimester: third trimester Qualified Code(s): O98.313 - Other infections with a predominantly sexual mode of transmission complicating , third trimester; A63.0 - Anogenital (venereal) warts (2) Abnormal ultrasound: COMMENT: maternal vaginal posterior varicosity, recommend US in third trimester. Ordered for 32 wk w/ MFM (3) Former smoker, stopped smoking in distant past: COMMENT: Quit 2011 (4) Occipital neuralgia: QUALIFIERS: Laterality: unspecified laterality Qualified Code(s): M54.81 - Occipital neuralgia COMMENT: causes migraine headaches, managed (5) Hx of section: COMMENT: failure to progress past 8 cm, 42% chance success, plan TOLAC by 39-40 weeks. RCS 04/04 if no spont labor (6) Supervision of high-risk : QUALIFIERS: Trimester: third trimester Qualified Code(s): O09.93 - Supervision of high risk , unspecified, third trimester COMMENT: PRR, , ENEDINA 04/04/24 PC Anupam(13y.o.) Naveen (7) : QUALIFIERS: Weeks of gestation: 39 weeks Qualified Code(s): Z3A.39 - 39 weeks gestation of COMMENT: GBS neg,normal anatomy. Has follow up US for maternal cyst. NIPT low risk, declined carrier testing PLAN: Plan After discussing the patient's diagnosis and treatment plan options, patient wishes to proceed with surgical management. I have discussed with the patient the risks, benefits, and alternatives of the procedure which include but are not limited to risks of anesthesia, bleeding, infection, possible damage to bowel, bladder, or surrounding vasculature which could lead to additional surgery to evaluate any complications. Patient agrees to procedure and wishes to proceed. ACOG/uptodate references given for additional information regarding procedure.
--- NOTE | 2024-04-04 07:14 | DCINST_ITS ---
Discharge Instructions Diet Discharge Diet: No restrictions Activity Discharge Activity: May Not Drive (for 2 weeks or while taking narcotic pain medications.), May Shower and May Take a Tub Bath (in 7 days.) May resume sexual activity in: 4-6 weeks Weight Bearing Status: Full weight bearing Lifting Restrictions: 20 pounds Dressing / Incision Call your doctor if your incision/area has: Continuous Slow Oozing, Sudden Increased Bleeding, Increased Pain/ Swelling, Increased Redness and Foul Smelling Discharge Call your doctor if you observe: Fever of 101 or Higher and Using more than 1 pad per hour Suture Line Care: Avoid Pulling/Pushing and Avoid Pinching/Bending Cleanse incision/area with: Soap & Water and Keep Dressing Clean & Dry Follow Up Care Please Follow Up With: Regla Borja DO When: Call [phone] to make an appointment for an incision check in 1-2 weeks. Test Results: Test results from this visit will be discussed in further detail at your follow- up appointment, if applicable. Discharge Plan Admission Admit Date/Time: 04/04/24 05:19 Primary Reason for Your Visit: repeat section Attending Provider: Regla Borja Primary Care Provider: Anitra Mcbride Discharge Orders/Prescriptions Prescriptions: New ibuprofen 800 mg tablet 800 mg PO Q8H PRN (Reason: pain) Qty: 30 0RF oxycodone-acetaminophen [Percocet] 5-325 mg tablet 1 tab PO Q4H PRN (Reason: pain) 7 Days Qty: 20 0RF Rx Instructions: 1-2 tabs q 4 hrs as needed for pain Continued PNV-[place] 28-1-300 mg capsule 1 cap PO DAILY Referrals / Follow Up: Anitra Mcbride DO [Primary Care Provider] - Disposition Disposition (needs filled in before D/C Order can be placed): Home, Self Care
[2024-04-04] MEDS: Sodium Citrate/Citric Acid 30 ML UDC PO (07:16)
[2024-04-04] MEDS: Cefazolin 2 GM in 0.9% Normal Saline (100mL Bag) 100 ML IV (07:29)
[2024-04-04 07:39] LABS: Amphetamine Urine VISTA NEGATIVE (<1000 ng/mL); Barbiturate Urine VISTA NEGATIVE (< 200 ng/mL); Benzodiazepine Urine VISTA NEGATIVE (< 200 ng/mL); Cocaine Urine VISTA NEGATIVE (< 300 ng/mL); Ecstacy Urine VISTA NEGATIVE (< 500 ng/mL); Methadone Urine VISTA NEGATIVE (< 300 ng/mL); PCP Urine VISTA NEGATIVE (< 25 ng/mL); THC Urine VISTA NEGATIVE (< 50 ng/mL); Vista UDS pH Range 6
[2024-04-04] MEDS: Oxytocin 15 Units/NS 250ml 15 UNITS/250 ML IV.SOLN 83 UNITS IV (08:58)
[2024-04-04] MEDS: Lactated Ringers 1,000 ML 150 ML IV (08:58)
[2024-04-04] MEDS: Ketorolac 30 MG/ML Syringe IV ×3 (09:27→20:34)
--- NOTE | 2024-04-04 09:37 | EX.PCM.OBRPT ---
Assessment & Plan (1) Genital warts complicating : QUALIFIERS: Trimester: third trimester Qualified Code(s): O98.313 - Other infections with a predominantly sexual mode of transmission complicating , third trimester; A63.0 - Anogenital (venereal) warts (2) Abnormal ultrasound: COMMENT: maternal vaginal posterior varicosity, recommend US in third trimester. Ordered for 32 wk w/ MFM (3) Obesity affecting : QUALIFIERS: Trimester: third trimester Obesity type affecting : unspecified obesity Qualified Code(s): O99.213 - Obesity complicating , third trimester COMMENT: BMI 30 A1C normal; Growth US 03/21 (4) Former smoker, stopped smoking in distant past: COMMENT: Quit 2011 (5) Occipital neuralgia: QUALIFIERS: Laterality: unspecified laterality Qualified Code(s): M54.81 - Occipital neuralgia COMMENT: causes migraine headaches, managed (6) Hx of section: COMMENT: failure to progress past 8 cm, 42% chance success, plan TOLAC by 39-40 weeks. RCS 04/04 if no spont labor (7) Supervision of high-risk : QUALIFIERS: Trimester: third trimester Qualified Code(s): O09.93 - Supervision of high risk , unspecified, third trimester COMMENT: PRR, , ENEDINA 04/04/24 PC Bigfoot(13y.o.) Naveen (8) : QUALIFIERS: Weeks of gestation: 39 weeks Qualified Code(s): Z3A.39 - 39 weeks gestation of COMMENT: GBS neg,normal anatomy. Has follow up US for maternal cyst. NIPT low risk, declined carrier testing Maternal Data Information ENEDINA Calculator Estimated Delivery Date Method Current WG Current Estimate 04/04/24 Ultrasound #1 40w 0d Other Estimates 04/09/24 LMP (Certain) 39w 2d Final ENEDINA: 04/04/24 Details Operative Information Date of Procedure: 04/04/24 Pre-Operative Diagnosis: 33 y/o @ 40 weeks 0 days gestation, history of prior section, declines Post-Operative Diagnosis: 33 y/o @ 40 weeks 0 days gestation, history of prior section, declines Indications for : Repeat Elective Classification: Scheduled Procedure Type: low transverse astrophysics professor #1: Dom Sauceda Type of Anesthesia: Spinal Antibiotic Given: Ancef 2 grams IV x1 Estimated Blood Loss: 600 Fluids Replaced: 1 liter Procedure Start Time: 07:41 Procedure Stop Time: 08:15 Time of Delivery: 07:46 Findings Description of Procedure: Procedure: The patient was brought to the operating room and spinal anesthesia was found to be adequate. She was prepped and draped in the normal sterile fashion and was placed in a dorsal supine position with a leftward tilt. Pfannenstiel skin incision was made with a scalpel and carried through to the underlying layers. The fascia was nicked in the midline and extended laterally using Owusu scissors. The anterior aspect of the fascia was grasped with Kathleen clamps and the underlying rectus muscles dissected off using the Metzenbaum scissors. The inferior aspect the fascia was also grasped with Kathleen clamps and the underlying rectus muscle dissected off with the Metzenbaum scissors. The rectus muscles were in the midline. Peritoneum was entered sharply. The uterus was identified and a bladder blade was inserted into the abdomen. Bladder flap was created off the uterus using Metzenbaum scissors. A transverse incision was made with a scalpel and extended laterally manually. The 's head was grasped with the help of my financial services assistant and fundal pressure the infant was delivered through the uterine incision without difficulty. The mouth and nares were bulb suctioned. After a 30 second delay the cord was clamped and cut. The was handed off to the awaiting software installation engineer for routine assessment. Placenta was delivered manually without difficulty. The uterus was exteriorized and cleared of all clots and debris. Incision was closed with an 0 Vicryl suture in a running locked fashion. Second layer of 1-0 monocryl suture was used in imbricating manner to create excellent closure and hemostasis. The uterus was returned to the abdomen. The gutters were cleared of all clots and debris. The peritoneum was closed in a pursestring pattern using a 3-0 Vicryl suture. This muscle was reapproximated with a 3-0 Vicryl. The fascia was closed with an 0-PDS suture. Subcutaneous tissue layer was closed using a plain gut suture. The skin was closed with a 4-0 Monocryl subcuticular stitch. The skin was also sealed with surgical glue. The patient tolerated the procedure well sponge lap and needle counts were correct at each tissue closure plane and the patient is now being brought to the recovery room in stable condition The financial services assistant helped with retraction, fundal pressure, suture cutting and skin closure. baby boy Bhupendra weight 4215g Presentation: Positive for Vertex Amniotic Membrane Rupture Type: Artificial Amniotic Fluid Description: Clear Placental Delivery Description: Manual Removal Placenta Disposition: [facility] Cord Vessel Description: 3 Vessels Cord Entanglement: None Infant A Gender: Male (1 minute): 8 (5 minute): 9 Delayed Cord Clamping: Yes Complications Risks of Surgery Discussed w/Patient: Anesthesia Risks, Infection, Need for Future C-Sections and Injury to surrounding structure(s) including bowel and bladder Complications: none Multi Select Codes Urinary/Genital Urinary/Genital CPT Codes: 02160 Delivery global pkg
[2024-04-04] MEDS: Methylergonovine 0.2 MG/ML Ampul IM (11:04)
--- NOTE | 2024-04-04 11:13 | NURSING ---
With the last post op check, patients bleeding had some gushes with clots. This RN weighed the yellow pads and green pad the patient was laying on. The weighed pads was 281g, that made her total EBL 881cc. This RN notifed Dr. Eden verbally. Dr. Eden ordered one dose of Methergine.
[2024-04-04] MEDS: 0.9% Saline Lock 10 ML Syringe IV (16:02)
[2024-04-05 00:15] VITALS: BP 97/58; PULSE 70; RESP 16; TEMP 36.3; O2SAT 96
[2024-04-05] MEDS: Acetaminophen 500 MG Tablet 1000 MG PO ×3 (00:17→12:49)
[2024-04-05] MEDS: Ketorolac 30 MG/ML Syringe IV (03:06)
[2024-04-05 03:12] VITALS: BP 101/47; PULSE 65; RESP 16; O2SAT 98
[2024-04-05 05:41] LABS: Hematocrit 26.3 % (37-47); Hemoglobin 8.6 g/dL (12.0-15.0); Mean Corp Hgb Conc 32.7 g/dL (32-36); Mean Corpuscular Hgb 28.7 pg (27.0-32.0); Mean Corpuscular Volume 87.7 fL (81-99); Mean Platelet Vol. 11.9 fl (6.2-12.0); Platelet Count 160 K/mm3 (150-450); RBC Distribution Width CV 12.6 % (11.6-14.6); RBC Distribution Width SD 39.9 fl (35.1-43.9); White Blood Count 10.2 K/mm3 (4.4-11.0)
--- NOTE | 2024-04-05 07:58 | PCM.PN.OB ---
Subjective Subjective Patient doing well without complaints. Tolerating PO. Ambulating and voiding without difficulty. Feeding well. Denies chest pain, shortness of breath, calf pain/swelling, fevers, chills, lightheadedness. Objective Data Objective Data Vital Signs: Vital Signs Temp Pulse Resp BP Pulse Ox O2 Del Method 97.4 F L 65 16 101/47 L 98 Room Air 04/05/24 00:15 04/05/24 03:12 04/05/24 03:12 04/05/24 03:12 04/05/24 03:12 04/05/24 03:12 Oxygen Delivery Method Room Air Weight: 200 lb 2.876 oz Body Mass Index (BMI) 37.8 Intake & Output: Intake and Output for Last 24 Hours 04/03/24 04/04/24 04/05/24 23:59 23:59 23:59 Intake Total 2084 / 2084 Output Total 1 / 2371 400 / 400 Balance -286 / -286 -400 / -400 Lab / Micro Data 04/05/24 05:22 Labs: Laboratory Results - last 24 hr 04/05/24 05:22: WBC 10.2, RBC 3.00 L, Hgb 8.6 L, Hct 26.3 L, MCV 87.7, MCH 28.7, MCHC 32.7, RDW Std Deviation 39.9, RDW Coeff of Radha 12.6, Plt Count 160, MPV 11.9 Physical Exam Const alert and oriented x3 HEENT normocephalic Eyes PERRL Neck full ROM Resp normal respiratory effort GI soft to palpation GI Narrative: FF below U. Dressing dry and intact Palpation: tender other (appropriately) Assessment & Plan (1) S/P section: (2) Anemia: QUALIFIERS: Anemia type: iron deficiency Iron deficiency anemia type: unspecified iron deficiency Qualified Code(s): D50.9 - Iron deficiency anemia, unspecified PLAN: Plan s/p LTCS PPD # 1 1. routine post care 2. breast feeding- support given 3. rh positive 4. rubella immune 5. rpt CBC noon today 6. home tonight
[2024-04-05 08:50] VITALS: BP 95/42; PULSE 79; RESP 16; TEMP 36.9; O2SAT 98
[2024-04-05] MEDS: Ibuprofen 600 MG Tablet PO (09:20)
[2024-04-05] MEDS: Senna/Docusate Sodium 1 Tablet PO (09:21)
[2024-04-05 13:02] LABS: Hematocrit 26.6 % (37-47); Hemoglobin 8.6 g/dL (12.0-15.0); Mean Corp Hgb Conc 32.3 g/dL (32-36); Mean Corpuscular Hgb 28.6 pg (27.0-32.0); Mean Corpuscular Volume 88.4 fL (81-99); Platelet Count 169 K/mm3 (150-450); RBC Distribution Width CV 12.8 % (11.6-14.6); RBC Distribution Width SD 41.2 fl (35.1-43.9); Red Blood Count 3.01 M/mm3 (4.2-5.4); White Blood Count 8.4 K/mm3 (4.4-11.0)
[2024-04-05] MEDS: FLU VACC 2024-25(6MOS UP)/PF 45 MCG/0.5 ML SYRINGE IM (13:05)
[2024-04-05 13:45] VITALS: BP 100/56; PULSE 78; RESP 16; TEMP 36.7; O2SAT 98
--- NOTE | 2024-04-06 14:04 | CASEMGMT ---
Social Work Assessment Labor and Delivery Unit Patient Address:[address] [place], [place] [address]ona [place] [address] Phone number: [phone] Date of Referral: 04/05/24 Time of Referral:? 730 Referred By: Dr. Borja Date of Intervention: ??04/05/24 Time of Intervention:? 1300 Reason for Referral:? hx depression Sw completed chart review and acknowledges social work consult due to maternal mental health history positive for depression. Sw presented to bedside and introduced self to mother of baby (SARAH- Nina). MOB observed sitting down in chair and holding/ caring for . Sw explained reason for sw involvement and completed psychosocial assessment. Father of baby (FOB- Naveen) returned throughout conversation and engaged appropriately/ respectfully. History obtained from: medical records and mother of baby (SARAH)??? Household composition: Currently residing in the family home is SARAH, ENOC, and SARAH's 12 year old son, Anupam- whom she has 50/50 parenting with Anupam's dad. Parents deny any issues or concerns with current housing, reporting that it is safe and secure. Patient's parent/guardian status:? SARAH reports that she and ENOC have been together for 3 years, they were childhood friends. This is first baby for parents together- FOBs first child. SARAH denies domestic violence or intimate partner violence. ? Medical History: ?SARAH is 33 year old female who is 2, para 1- now 2 following labor and delivery of . SARAH received routine care during with [facility]. SARAH presented to hospital for scheduled repeat at 40 weeks gestation. Baby boy, named Bhupendra Mota, was born weighing 9lb 8oz with apgars of 8 and 8 at one and five minutes of life respectfully. SARAH states that she is breast feeding baby and it is going well. Baby will be followed by Dr. Brink for pediatrics. Educational Status:? Both parents graduated from high school, SARAH obtained her Master's degree and ENOC has his Bachelor's. 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 Infant Supplies: Parents have everything they need for baby, including: car seat, safe sleep space, clothes, diapers and wipes. Childcare/Caregiver(s):? SARAH works from home and will be the primary caregiver to baby along with FOB when he is not working. Transportation:?Both parents have their drivers license and reliable means of transportation, no barriers. ? Programs/Agencies Involved: Parents are not connected to any community resources that assist them financially. ??? Children Services/Legal Issues:???No history of children services involvement, no issues or concerns warranting referral to be made at this time. Behavioral Health Issues: ??Mental Health History:?ENOC denies mental health history. SARAH states that although she was told that she was experiencing depression/ anxiety she feels that her mental health symptoms were in correlation to getting really sick while she was still breast feeding her first baby at 8 months . MOB states that she was prescribed antibiotics so she had to stop nursing and she had severe headaches. MOB states that naturally those things made her sad and upset. MOB states that she was never prescribed any medications to help her manage her mental health. MOB states that when she felt better she mentally felt better as well. ?? Substance Use History:It is noted in MOB chart that she used cannabis gummys during . When asked MOB this question she states that she did not use any type of gummy, cannabis or marjuana during her . MOB states that she has used marijuana gummys once or twice in the past socially, but never while . ? Family History: MOB denies family substance use/ addiction issues or significant mental health diagnoses. ? Drug Screens: MOB urine screen was negative at time of delivery. Family/Social Stressors:? Parents deny any issues, concerns or stressors at this time. Support Systems: SARAH reports that FOB and both sets of grandparents are extremely supportive. Depression/Shaken Baby/Safe Sleeping: Sw educated MOB on signs and symptoms of baby blues and mood and anxiety disorders to be on the lookout for. MOB states that she is familiar with symptoms and feels comfortable discussing any issues she may experience with FOB or other family members. MOB states that FOManish would also be able to notice if she were struggling with issues and would know how to help and support her. Rose educated parents on shaken baby prevention and ABCs of safe sleep. Parents express understanding. ASSESSMENT:? MOB and baby admitted following labor and delivery of . MOB initially somewhat defensive while meeting with sw. MOB expressed frustration that she was accused of using marijuana gummies during . MOB states that she does not use any type of substances regularly, even when not . MOB initially warmed up to sw and engaged appropriately throughout completion of assessment. MOB observed to hold baby and provide loving hands on care. MOB and FOB observed to have loving relationship with one another. MOB and FOB have everything they need for baby and natural supports in place. PLAN:?? No other services requested or indicated. MOB and baby to be discharged when medically ready. Parents were provided literature regarding: signs and symptoms of baby blues and mood and anxiety disorders, Help Me Grow, shaken baby prevention, ABCs of safe sleep and a list of county resources that are available for them should any needs present themselves. Kaitlin Hugo, CLIENT ANALYST, TECHNICAL SOLUTIONS ENGINEER
== END 2024-04-05 15:25 | disposition home or self-care (01) | DRG 787 ==
PROVIDERS: Nurse Practitioner Women's Health; Admitting Provider Obstetrics & Gynecology; PCP Internal Medicine; Referring Provider Obstetrics & Gynecology; Visit Provider Obstetrics & Gynecology
PROC: 10D00Z1 Extraction of Products of Conception, Low, Open Approach (ICD-10-PCS; CPT 59514; principal; 2024-04-04 07:00)
DX: O34.219 Maternal care for unspecified type scar from previous cesarean delivery (principal); O98.32 Other infections with a predominantly sexual mode of transmission complicating childbirth; D50.9 Iron deficiency anemia, unspecified; M54.81 Occipital neuralgia; A63.0 Anogenital (venereal) warts; Z37.0 Single live birth; Z87.891 Personal history of nicotine dependence; Z3A.40 40 weeks gestation of pregnancy; O90.81 Anemia of the puerperium; O99.893 Other specified diseases and conditions complicating puerperium
CPT/HCPCS: 59025; 59050; 80307; 85025; 85027; 86780; 86850; 86900; 86901; 90656; 99221; J7120; A4216; G0378; J2405

== ENCOUNTER → 2024-06-06 | Outpatient (CLI) | payer OTHER, SELFPAY ==
--- NOTE | 2024-06-06 | VUL_PTH ---
PATIENT: ARIELLE MUNGUIA LOC: [facility] U#:[id number] AGE/SX: 34/F ROOM: RE06/06/[address]: Dr. Regla Borja DO : 1990 BED: DIS: 06/06/2024 SPEC #: [id number] RECD: 06/06/24 16:05 STATUS: MOISE MOISE #: [id number] SHARON: 06/06/24 00:[address]: Regla Borja DEPT: SURGICAL PATHOLOGY RECD BY: Sherrie Li ENTERED: 06/07/24 11:20 SP TYPE: VULVA BX OTHR DR: Dr. Anitra Mcbride DO Tissues: Vulva, NOS Procedures: Surgery Specimen Level IV HEADER OPERATION: Genital war biopsy PRE-OP DIAGNOSIS: Genital warta TISSUE SUBMITTED: Vulva MICROSCOPIC DIAGNOSIS Vulvar lesion, biopsy: Consistent with fragments of condyloma acuminatum. AM.mr 06/08/2024 MICROSCOPIC DESCRIPTION Slides are reviewed. GROSS DESCRIPTION Received is one container labeled with the patient's name and not further designated. The specimen consists of multiple irregular fragments of saravia-brown skin that in aggregate measure 2.0 x 1.5 x 0.3 cm. The largest piece measures 0.8cm in greatest dimension. The specimen is totally submitted in one cassette. 06/07/2024 TC:5 CPT:55599
== END | disposition home or self-care (01) ==
LOC: LABSPEC 16:41
PROVIDERS: PCP Internal Medicine; Referring Provider Obstetrics & Gynecology; Visit Provider Obstetrics & Gynecology
DX: A63.0 Anogenital (venereal) warts (principal)
CPT/HCPCS: 88305

== ENCOUNTER → 2025-02-22 | Outpatient (CLI) | payer OTHER, SELFPAY ==
--- NOTE | 2025-02-22 10:31 | RAD_ITS ---
PROCEDURE: KNEE 3 VIEWS 02/22/2025 REASON FOR EXAM: PAIN TECHNIQUE: Procedure Code: RADPAT Modality: DX Procedure: KNEE 3 VIEWS Laterality: Right COMPARISON: None FINDINGS: Osseous: Femorotibial spacing and alignment is within normal limits. There is no visible positive drawer sign. Multiple calcific densities measuring up to 3 mm are seen overlying the posterolateral femorotibial joint space of indeterminate significance, possibly chondrocalcinosis or other dystrophic soft tissue calcifications. Small sclerotic lesion noted within the distal medial femoral metaphysis, most likely representing a bone island. Proximal tibiofibular congruency is maintained. Patellar height is within normal range. Mild patellar marginal osteophytes are seen. There may be small subchondral lucencies within the patella suggesting degenerative change. The patella is mildly laterally subluxed with respect to the trochlea. There is mild lateral patellofemoral joint space loss. The femoral trochlea is well formed without dysplasia. No acute displaced fracture seen. Soft tissues: [id number] suprapatellar effusion noted. There is soft tissue swelling medial to the patella. Clinical correlation for possibility of medial patellar retinacula injury and a lateral patellar translational event. Soft tissue injury is not well evaluated by this technique. For more complete assessment of acute musculoskeletal injury/abnormality or internal derangement consider MRI as clinically appropriate. RAD/Knee 3 Views IMPRESSION: No acute fracture of the knee. - Bisda-zs-atluktci suprapatellar effusion. - Slight lateral subluxation of the patella with soft tissue swelling medial to t he patella may indicate a lateral translational event and soft tissue injury respectively. - Findings and recommendations discussed above. Reading Location: [id number]
== END | disposition home or self-care (01) ==
PROVIDERS: PCP Internal Medicine; Referring Provider Physician Assistant Surgical; Visit Provider Physician Assistant Surgical
DX: M25.561 Pain in right knee (principal)
CPT/HCPCS: 73562

== ENCOUNTER → 2025-03-09 | Outpatient (CLI) | payer OTHER, SELFPAY ==
--- NOTE | 2025-03-09 06:52 | MRI_ITS ---
PROCEDURE: LOWER EXT JOINT ONLY (ROUTINE) 03/09/2025 REASON FOR EXAM: EFFUSION, 3 WEEKS, XRAY SIGNS OF LOOSE BODIES No known injury. Knee pain. TECHNIQUE: Procedure Code: MRILEJ Modality: MR Procedure: LOWER EXT JOINT ONLY (ROUTINE) Multiplanar and multisequence images were obtained without IV contrast administration. COMPARISON: COMPARISON : Conventional radiographs. FINDINGS: Cruciate Ligaments: Myxoid changes of the anterior cruciate ligament as it inserts into the tibia. The anterior and posterior cruciate ligaments are intact. Menisci: Lateral meniscus minimally subluxed laterally and slightly thinned in the body of the meniscus . No focal tear. Collateral Ligaments: There is slight thickening of the lateral collateral ligament with minimal edema as insertion into the tibia. No tear or sprain. Cartilage: Mild cartilage loss of articulating component of both the medial and lateral femoral condyles. Furthermore, probable chondral defect/small loose body noted on the coronal images between the body of the lateral meniscus in the lateral edge of the femoral condyle. This is best seen on the coronal images adjacent cartilage loss noted. Additionally on the coronal images there is a signal neutral structure adjacent to the intercondylar notch which would correspond to another potential osteochondral defect. This measures 5 mm. Fissuring of the cartilage noted of the patella. Slight loss of cartilage of the lateral facet of the patella with a slight laterally tilting but tele. Extensor Mechanism: The quadriceps and patellar tendons are negative. Bones: As described above small area edema of the lateral tibial plateau. Joint spaces: Early joint space narrowing in both the medial and lateral compartments. Effusion: Small joint effusion. Soft tissues: Muscles negative. MRI/Lower Ext Joint Only (Routine) IMPRESSION: Myxoid degeneration of the anterior cruciate ligament without definitive tear t he ligament is best seen on the coronal images. 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 This corresponds to the area of concern on radiographs. Probable lateral collateral ligament bursitis with adjacent bone marrow edema. Reading Location: [place] [address]
== END | disposition home or self-care (01) ==
LOC: MRI 07:02
PROVIDERS: PCP Internal Medicine; Referring Provider Orthopaedic Surgery Sports Medicine; Visit Provider Orthopaedic Surgery Sports Medicine
DX: M25.561 Pain in right knee (principal); M25.461 Effusion, right knee; S86.911A Strain of unspecified muscle(s) and tendon(s) at lower leg level, right leg, initial encounter
CPT/HCPCS: 73721

== ENCOUNTER 2025-05-23 13:12 | Emergency (ER) | payer OTHER, SELFPAY ==
[2025-05-23 13:12] VITALS: BP 138/77; PULSE 65; RESP 14; TEMP 36.6; O2SAT 100; BMI 32.3
--- NOTE | 2025-05-23 13:32 | EX.ED.VIS.HA ---
HPI History of Present Illness Chief Complaint: Headache Detail of Chief Complaint: Headache Informant: patient Narrative Narrative: Patient presents to the emergency department with complaint of headache for about 4 months. Patient states that she was seen initially by her primary care physician in the office and was thought she might have a sinus infection therefore she was put on a Z-Breezy and she seemed to improve for short time. She then states that the headaches returned and saw a nurse practitioner in the office who put her on prednisone because it was thought she may be having occipital neuralgia which she had 12 years ago. Patient states that she could not tolerate the prednisone very well and only took it for a couple of days because it did not make her feel well. She describes whole head pain. She complains of pressure in her face. She denies fever. She is having a hard time sleeping at night because of the pain. Denies nausea or vomiting. Some mild photophobia. No significant history of migraines. Denies any issues with carbon monoxide in the home nobody else has headaches at home. Denies recent illness other than the body aches today. [facility] Medical History (Updated 05/23/25 @ 15:[address] Sav Guallpa, ) Sinus congestion Family history of diabetes mellitus (DM) Non-smoker Abdominal pain Left knee pain Allergic rhinitis Migraines Neck pain Abnormal growth of collarbone Insomnia Anxiety Osteochondral defect Loose body of right knee Effusion, right knee Right knee pain Contraceptive management Supervision of high-risk Obesity affecting Abnormal ultrasound Genital warts complicating depression Headache Use of cannabinoid edibles Avulsion fracture Strain of left knee Knee pain Home Medications ?Medication ?Instructions ?Recorded ?Last Taken ?Type levonorgestrel (Mirena) 1 device intrauterine ONCE 07/24/24 Unknown History ibuprofen 200 mg capsule 200 mg PO Q6H PRN 02/22/25 Unknown History cyclobenzaprine 10 mg tablet 10 mg PO HS PRN muscle spasm #20 05/15/25 Unknown Rx tabs prednisone 10 mg tablet 10 mg PO DIRECTED #39 tabs 05/15/25 Unknown Rx Allergy/AdvReac Type Severity Reaction Status Date / Time Penicillins Allergy Mild Rash Verified 05/23/25 13:14 shellfish derived Allergy Mild Itching Verified 05/23/25 13:14 Family History Mother Thyroid disorder Hypertension Grandmother Diabetes Paternal Grandmother Diabetes maternal Other Cancer Surgical History [place] teeth extracted S/P ventral herniorrhaphy s/p right elbow surgery s/p left elbow surgery S/P section Social History (Updated 05/15/25 @ 10:44 by Radha Clancy) adopted: No household members: spouse and children number of children: 2 current occupational status: employed current occupation: Multimedia Coordinator current occupational exposures/hazards: No pets and animals: Yes (Avoid litterbox) pets and animals: cat(s) and dog(s) history of recent travel: Yes (April) out of state: Yes out of country: No sexually active: Yes Smoking Status: Light Smoker (<10/day) alcohol intake: current details: Not while substance use type: does not use well-balanced diet: daily or most days caffeine: Yes Type: coffee Number of servings: 1 eating out: rarely or never during the past year weight has: remained stable what type of physical activity do you participate in: weight training frequency: 5-6 times per week duration: 15-30 minutes/day idris/quaker: None seatbelt use: always do you feel safe at home: Yes additional social history: Naveen HARJEET ROS ED Review of Systems ROS Unobtainable: other Constitutional Constitutional ED: Reports lethargy; Denies chills, fever(s), sweats or weight loss Eyes Eyes: Denies blurry vision, change in vision or diplopia ENT ENT ED: Denies rhinorrhea or sore throat Cardiovascular Cardiovascular: Denies chest pain, orthopnea or racing heartbeat Respiratory/Chest Respiratory/Chest: Denies cough, dyspnea, dyspnea on exertion, orthopnea or sputum Gastrointestinal Gastrointestinal: Denies abdominal pain, diarrhea, nausea or vomiting Genitourinary Genitourinary ED: Denies dysuria, hematuria or urinary frequency Musculoskeletal Musculoskeletal: Denies arthralgias, back pain, myalgias or neck pain Integumentary Denies abscess, Abrasions or rash Neurologic Neurologic: Reports headache(s); Denies weakness Psychiatric Psychiatric: Denies anxiety, depression or suicidal thoughts Endocrine Endocrinology: Denies polydipsia, polyphagia or polyuria Hematologic/Lymphatic Hematologic/Lymphatic: Denies easy bleeding, easy bruising or lymphadenopathy Allergic/Immunologic Allergic/Immunologic ED: Denies mouth swelling, tongue swelling or urticaria EXAM Physical Exam Const Vital Signs: 05/23/25 13:12 Temperature 97.8 F Temperature Source Oral Pulse Rate 65 Respiratory Rate 14 Blood Pressure 138/77 H Blood Pressure Mean 97 Pulse Ox 100 Oxygen Delivery Method Room Air Positive well nourished and well developed General Appearance ED: well developed and NAD HEENT Reports TM's clear and moist mucous membranes HEENT Narrative: No tenderness to palpation of the temporal arteries. Mild tenderness to bilateral occipital foramina. Neck is supple. No nuchal rigidity. normocephalic and atraumatic; Negative for trauma or tenderness Tympanic Membrane ED: Yes TM's clear Eyes PERRL and EOMs intact bilaterally General Eye ED: Negative for pale conjunctiva or scleral icterus Neck no lymphadenopathy, supple and no JVD General: Negative for tenderness Chest Wall inspection of chest normal and palpation of chest normal Chest: Negative for tenderness Resp normal respiratory effort and clear to auscultation bilaterally Effort and Inspection: Negative for respiratory distress or pain with movement Auscultation: Negative for rhonchi, wheezes or diminished lung sounds Cardio regular rate, regular rhythm, S1 normal heart sound, S2 normal heart sound and no murmurs Peripheral Pulses: pulses 2+ throughout GI normal to inspection, nondistended, normoactive bowel sounds, soft to palpation, non-tender, non-distended and no masses Back/Spine no CVA tenderness and no thoracic nor lumbar tenderness Extremity normal to inspection General Extremety ED: Negative for edema General Extremity: Negative for edema Neuro oriented x3, CN's II-XII intact bilaterally, no sensory deficits noted and gait normal Neuro Narrative: Finger-nose and heel harmon testing within normal limits, negative Romberg, negative pronator drift, fundi benign Sensorium / Orientation: awake, alert, oriented to person, oriented to place and oriented to time Motor Exam: strength 5/5 throughout and strength abnormal Psych mental status grossly normal Skin no rashes or lesions noted and no wounds MDM MDM MDM Narrative Medical decision making narrative: Patient presents with chronic headache for over 4 months. No focal deficits on exam. Will obtain CT scan of the brain as well as CTA head and neck to evaluate further. Will obtain some basic labs. Will treat with Reglan, Benadryl, and Toradol as well as a liter normal send fluid bolus. Patient had CT scan of the brain without contrast that showed tiny lacunar in the posterior limb of the left internal capsule age-indeterminate. CTA head and neck unremarkable. CBC with differential showed a minimally elevated white count 11.9 however patient has been on steroids recently. Hemoglobin was 15.4 and platelet count 282. Chemistries unremarkable. Total CPK was normal at 9 and hCG was negative. Patient was given Reglan Benadryl and Toradol and did have some pain improvement. At this point etiology of her headache unclear. It would be atypical for migraine. Could be tension. She does have history of occipital neuralgia but she is complaining of pain to both sides of the head. Will refer to neurology for follow-up. Also vies her to follow-up with her primary care physician as sometimes they can prescribe things like Lyrica or gabapentin to help with nerve pain. Lab Data Attestation: I reviewed the patient's lab results. Labs: Laboratory Results - last 24 hr 05/23/25 13:46 WBC 11.9 H RBC 5.02 Hgb 15.4 H Hct 44.9 MCV 89.4 MCH 30.7 MCHC 34.3 RDW Std Deviation 38.3 RDW Coeff of Radha 11.8 Plt Count 282 MPV 10.7 Immature Gran % (Auto) 1.200 H Neut % (Auto) 67.9 Lymph % (Auto) 21.4 Sevier % (Auto) 6.8 Eos % (Auto) 1.9 Baso % (Auto) 0.8 Absolute Neuts (auto) 8.1 H Absolute Lymphs (auto) 2.53 Nucleated RBC % 0 ESR 1 Sodium 139 Potassium 3.6 Chloride 100 Carbon Dioxide 31.2 Anion Gap 8 BUN 14 Creatinine 0.80 Estim Creat Clear Calc 93.54 Est GFR (MDRD) Non-Af 99 BUN/Creatinine Ratio 17.2 Glucose 94 Calcium 9.1 Total Creatine Kinase 9 L Serum , Qual NEGATIVE Radiography Diagnostic Testing: Clinical Impression(s) from Imaging Studies Brain CT 05/23/25 13:54 IMPRESSION: Tiny lacune is seen in the posterior limb of the left internal capsule. Age of which can not be determined on this examination. Reading Location: [facility] Head/Neck CTA 05/23/25 13:54 IMPRESSION: No hemodynamically significant stenosis in the head and neck. Reading Location[facility] Discharge Plan Triage Chief Complaint: Headache ED Provider: Sav Guallpa Dx/Rx/DC Orders Clinical Impression: Headache Instructions: ED Headache Unspecified Prescriptions: No Action Mirena 21 mcg/24hr (up to 8 yrs) 52 mg intrauterine device 1 device intrauterine ONCE Rx Instructions: as a single dose ibuprofen 200 mg capsule 200 mg PO Q6H PRN prednisone 10 mg tablet 10 mg PO DIRECTED Qty: 39 0RF Rx Instructions: see taper instructions Days 1 through 3 take 6 tabs daily Days 4 through 6 take 4 tabs daily Days 7 through 9 take 2 tabs daily Days 10 through 12 take 1 tab daily cyclobenzaprine 10 mg tablet 10 mg PO HS PRN (Reason: muscle spasm) Qty: 20 0RF Primary Care Provider: Anitra Mcbride Referrals: Anitra Mcbride DO [Primary Care Provider, Internal Medicine] Jamil Cunha MD [Non-Staff -Ordering Privileges, Neurology] - 3-5 Days Activity Restrictions/Additional Instructions: Follow-up with your primary care physician in possibly ask about treatment with Lyrica or gabapentin for nerve pain. Also follow-up with neurology sometimes steroid injections to the area of the occipital nerve may be beneficial. Print Language: [place] Disposition Disposition: Home, Self Care
[2025-05-23] MEDS: Ketorolac 30 MG/ML Syringe IV (13:41)
[2025-05-23] MEDS: 0.9% Normal Saline (1000mL) 1,000 ML 1000 ML IV (13:42)
[2025-05-23] MEDS: DiphenhydrAMINE 50 MG/ML Syringe 25 MG IV (13:42)
--- NOTE | 2025-05-23 13:54 | CT_ITS ---
PROCEDURE: CTA HEAD AND NECK W/ CONTRAST 05/23/2025 REASON FOR EXAM: HEADACHE FOR 4 MONTHS TECHNIQUE: Procedure Code: CTCTA.HDNCK Modality: CT Procedure: CTA HEAD AND NECK W/ CONTRAST Multiplanar Sagittal and Coronal images were obtained. CONTRAST: Isovue 370 VOLUME: 75 mL One or more dose reduction techniques were used (e.g., Automated exposure control, adjustment of the mA and/or kV according to patient size, use of iterative reconstruction technique). RADIATION DOSE SUMMARY: CTDlvol: 18.64 mGy DLP: 1003.82 mGycm COMPARISON: None. FINDINGS: Aortic Arch: Normal size and branching pattern. No significant atherosclerotic plaque. Brachiocephalic and Subclavians: Unremarkable RIGHT Carotid: Right CCA: Unremarkable. Right ICA: Unremarkable. Right ECA: Unremarkable. LEFT Carotid: Left CCA: Unremarkable. Left ICA: Unremarkable. Left ECA: Unremarkable. Vertebrals: Codominant. Arise from the subclavians. Both vertebrals form the basilar. RIGHT Vertebral: Unremarkable. LEFT Vertebral: Unremarkable. Anatomy: [place] anatomy is normal. Aneurysm or avm: No intracranial aneurysms or large vascular malformations are identified. Anterior cerebral arteries: Unremarkable: Middle cerebral arteries: Unremarkable. Basilar artery: Unremarkable. Posterior cerebral arteries: Unremarkable. Other major branches of the posterior circulation: Unremarkable. Major venous structures: Unremarkable. Other findings: Neck: No lymphadenopathy. Lungs: Clear bones: No acute bony elements. CT/CTA Head AND Neck W/ Contrast IMPRESSION: No hemodynamically significant stenosis in the head and neck. Reading Location: [id number]
--- NOTE | 2025-05-23 13:54 | CT_ITS ---
PROCEDURE: BRAIN/HEAD WITHOUT CONTRAST 05/23/2025 REASON FOR EXAM: HEADACHE FOR 4 MONTHS TECHNIQUE: Procedure Code: CTBR Modality: CT Procedure: BRAIN/HEAD WITHOUT CONTRAST Coronal and Sagittal reconstruction series were provided. One or more dose reduction techniques were used (e.g., Automated exposure control, adjustment of the mA and/or kV according to patient size, use of iterative reconstruction technique. RADIATION DOSE SUMMARY: CTDlvol: 44.99 mGy DLP: 796.11 mGycm COMPARISON: None FINDINGS: Brain: Tiny lacune is seen in the posterior limb of the left internal capsule. Age of which can not be determined. This is seen on axial image number 20 and coronal image number 31. CSF Spaces: Normal Sinuses/Mastoids: Clear at visualized levels Bones: Unremarkable CT/Brain/Head without Contrast IMPRESSION: Tiny lacune is seen in the posterior limb of the left internal capsule. Age of which can not be determined on this examination. Reading Location: [facility]
[2025-05-23 14:05] LABS: Hematocrit 44.9 % (37-47); Hemoglobin 15.4 g/dL (12.0-15.0); Immature Granulocytes Count 0.140 X10^3/uL (0.0-0.0); Mean Corp Hgb Conc 34.3 g/dL (32-36); Mean Corpuscular Volume 89.4 fL (81-99); Mean Platelet Vol. 10.7 fl (6.2-12.0); NRBC Flagged by Analyzer 0 % (0-5); Platelet Count 282 K/mm3 (150-450); RBC Distribution Width CV 11.8 % (11.6-14.6); RBC Distribution Width SD 38.3 fl (35.1-43.9); Red Blood Count 5.02 M/mm3 (4.2-5.4); White Blood Count 11.9 K/mm3 (4.4-11.0)
[2025-05-23 14:11] LABS: Internal QC Validated? YES +Cl - CLEAR BKGD; Pregnancy, Serum, hCG Quali. NEGATIVE Negative; Record Kit Lot#, Serum Preg. 0000980607
[2025-05-23 14:25] LABS: Anion Gap 8 (5-15); BUN 14 mg/dL (4-19); BUN/Creat Ratio 17.2 RATIO (10-20); Calcium,Total 9.1 mg/dL (7.6-11.0); Carbon Dioxide 31.2 mmol/L (21.0-32.0); Chloride 100 mmol/L (98-108); Estimated Creatinine Clearance 93.54 ml/min (50-250); Glucose 94 mg/dL (70-99); Potassium 3.6 mmol/L (3.3-5.1)
[2025-05-23 14:47] LABS: CPK Total, Creatine Kinase 9 U/L (24-195)
[2025-05-23 15:12] VITALS: BP 99/65; PULSE 64; RESP 14; TEMP 36.7; O2SAT 97
== END 2025-05-23 15:18 | disposition home or self-care (01) ==
PROVIDERS: Emergency Provider Emergency Medicine; PCP Internal Medicine; Visit Provider Emergency Medicine
DX: R51.9 Headache, unspecified (principal); F17.200 Nicotine dependence, unspecified, uncomplicated
CPT/HCPCS: 70450; 70496; 70498; 80048; 82550; 84703; 85025; 85652; 96361; 96374; 96375; 99283; Q9967